=== PATIENT | female | born 1985 | race Asian ===

== ENCOUNTER → 2024-11-09 13:52 | Outpatient (REF) | payer OTHER, SELFPAY | LOC: WDC 13:52 | PROVIDERS: ATTENDING PHYSICIAN Student in an Organized Health Care Education/Training Program; FAMILY PHYSICIAN Family Medicine | DX: Z12.31 Encounter for screening mammogram for malignant neoplasm of breast (principal) | CPT/HCPCS: 77063; 77067 ==

== ENCOUNTER → 2025-07-22 13:58 | Outpatient (REF) | payer OTHER, SELFPAY | LOC: RAD 13:58 | PROVIDERS: ATTENDING PHYSICIAN Obstetrics & Gynecology; FAMILY PHYSICIAN Family Medicine | DX: N70.11 Chronic salpingitis (principal) | CPT/HCPCS: 76830; 76856 ==

== ENCOUNTER 2025-08-02 05:09 | Emergency (ER) | payer OTHER, SELFPAY ==
[2025-08-02 05:10] VITALS: BP 110/52
[2025-08-02 05:32] VITALS: BMI 19.2
[2025-08-02] MEDS: NSS 1000 IV (05:41)
[2025-08-02] MEDS: ZOFRAN 4 MG IV (05:45)
[2025-08-02] MEDS: MORPHINE SULFATE 4 MG IV (05:47)
--- NOTE | 2025-08-02 05:55 | EDRN ---
Pt complains of lower abdominal pain that started last night. Pt says pain was intermittent and stabbing in nature. Pt took 2 advil at 2200 before going to bed. Pain woke pt around 0330. Pt took 1 advil at 0400 and says advil helped her pain a
little. Pt feels bloated. Pt denies cp, sob, n/v/d/c, urinary symptoms, fever/chills/cough, weakness, dizziness. Pt with known ovarian cyst. No bleeding.
[2025-08-02 05:57] LABS: Hematocrit 34.0 % (37.0-47.0); Hemoglobin 11.5 g/dL (12.0-16.0); Mean Corp Hgb Conc. 33.8 g/dL (33.0-37.0); Mean Corpuscular Volume 90.2 fL (81.0-99.0); Nucleated Red Blood Cells % 0 %; Platelet Count 181 10^3/uL (130-400); Red Cell Dist. Width 13.4 % (11.5-14.5)
[2025-08-02 06:07] LABS: HCG, Serum Qualitative Screen Negative
--- NOTE | 2025-08-02 06:14 | ED.GENMED ---
History of Present Illness
<Vitaliy De Jesus, - Last Filed: 08/02/25 06:16>
General
Chief Complaint: Abdominal Pain
Source: patient and spouse
Time Seen by Provider: 08/02/25 05:14
Nursing documentation reviewed up to this point in time: agreed with
History of Present Illness
History of Present Illness:
Note:
CHIEF COMPLAINT(S)
Severe lower abdominal pain.
HISTORY OF PRESENT ILLNESS
The patient is a 39-year-old female who presented with severe lower left abdominal/ pelvic pain. The pain initially occurred at 3:10 PM the previous day, described as excruciating, and lasted approximately 40 minutes. The patient considered seeking
immediate medical attention but the pain subsided before arrival at the emergency department. The pain recurred around 3:30 AM with an intensity rated as 6 to 7 out of 10. The patient reports mild nausea but denies fever, chills, or urinary problems.
The patient has a recent history of being diagnosed with an ovarian cyst in [place] upon physical examination. Subsequent ultrasounds revealed conflicting diagnoses, with one being an ovarian cyst and another suggesting a hydrosalpinx. The patient is
attempting to undergo magnetic resonance imaging (MRI) for a definitive diagnosis. She reports no prior experience of such pain and describes it as sharp, often intensifying with bowel movements, and now encompassing a broader area of the abdomen.
EXTERNAL RECORDS REVIEWED
According to the patients verbal report, a physical examination was conducted in [place] recently, identifying an ovarian cyst through ultrasound. A subsequent evaluation in the [facility] presented a similar finding, alongside an alternative diagnosis of
hydrosalpinx based on various ultrasound types.
SOCIAL DETERMINANTS AFFECTING HEALTH
There is no mention of factors such as substance use, financial hardship, or housing instability affecting the patients health in the conversation.
REVIEW OF SYSTEMS
- Gastrointestinal: Severe lower abdominal pain, mild nausea.
- Urinary: No urinary issues reported.
- Constitutional: No fever, chills reported.
PHYSICAL EXAM
General: Alert, minimal acute distress.
Skin: Warm, dry.
Head: Normocephalic, atraumatic.
Neck: Supple, trachea midline.
Eye Ears, nose, mouth and throat: Oral mucosa moist.
Cardiovascular: Normal peripheral perfusion, No edema.
Respiratory: Respirations are non-labored.
Gastrointestinal: Abdomen nondistended. Good bowel sounds x 4 quadrants. Tenderness to palpation in the left lower quadrant
Back: Normal range of motion, Normal alignment.
Musculoskeletal: Normal ROM, normal strength.
Neurological: Alert and oriented to person, place, time, and situation, No focal neurological deficit observed.
Psychiatric: Cooperative, appropriate mood & affect.
PLAN
Administer intravenous fluids to the patient to aid in imaging studies. An ultrasound is suggested as the first diagnostic test to assess for potential ovarian torsion, given that it may be more effective in identifying this condition than a
computed tomography (CT) scan. A CT scan is also recommended to investigate further and consider hydrosalpinx as a differential. Consent should be obtained for a transvaginal ultrasound if the patient is agreeable.
DIFFERENTIAL DIAGNOSIS
The Differential Diagnosis includes, in no particular order and is not limited to:
1. Ovarian cyst
2. Ovarian torsion
3. Hydrosalpinx
4. Pelvic inflammatory disease
5. Ectopic
6. Appendicitis
7. Urinary tract infection
8. Gastroenteritis
9. Diverticulitis
10. Renal colic
Phy Exam
<Raymundo Hinds, DO - Last Filed: 08/02/25 14:18>
Physical Exam
Physical Exam:
.
Course
<Vitaliy De Jeuss, DO - Last Filed: 08/02/25 06:16>
Orders/Labs/Results
Orders:
Orders
08/02/25 05:15
CT Abd/Pel (IV only)-[facility] only Urgent
Comment:
Reason For Exam: LLQ abd pain
Test Result ONCE
08/02/25 05:30
US Pelvis Transvaginal Only Urgent
Comment:
Reason For Exam: left pelvic pain, previous dx of Ovarian cyst
08/02/25 05:31
0.9% Sodium Chloride 1000 ml [Nss] 1,000 ml IV BOLUS
Morphine Sulfate 4 mg IV NOW STA
Ondansetron Injectable [Zofran] 4 mg IV NOW STA
08/02/25 05:40
Complete Blood Count/With Diff Urgent
Comprehensive Metabolic Panel Urgent
HCG, Serum Qualitative Screen Urgent
Lipase Urgent
PTT Urgent
Prothrombin Time Urgent
08/02/25 07:26
Urinalysis Reflex To Culture Urgent
Date Specimen was Collected: 08/02/25
Time Specimen was Collected: 07:23
Urine Microscopic Reflex Cult Urgent
Urine Culture Urgent
KIKI Source: U
Specimen Description:
Date Specimen was Collected: 08/02/25
Time Specimen was Collected: 07:23
Abnormal Lab Results
08/02/25 08/02/25
05:40 07:26
WBC 13.7 H 10^3/uL
(4.8-10.8)
RBC 3.77 L 10^6/uL
(4.20-5.40)
Hgb 11.5 L g/dL
(12.0-16.0)
Hct 34.0 L %
(37.0-47.0)
Absolute Neuts (auto) 12.1 H 10^3/uL
(1.4-6.5)
Absolute Lymphs (auto) 1.0 L 10^3/uL
(1.2-3.4)
Neutrophils % 88.0 H %
(42.2-75.2)
Lymphocytes % 7.1 L %
(20.5-51.1)
Chloride 108 H mmol/L
(98-107)
Creatinine 0.4 L mg/dL
(0.6-1.0)
Glucose 103 H mg/dl
(70-99)
Total Bilirubin 2.1 H mg/dl
(0.2-1.3)
Alkaline Phosphatase 36 L U/L
(38-126)
Leukocyte Esterase Rfl 1+ A
(Negative)
Urine Bacteria (Reflex) Few A
(Negative)
08/02/25 05:40
08/02/25 05:40
Vital Signs
Initial and Last Documented VS:
Initial Vital Signs
Temp Pulse Resp BP Pulse Ox
97.8 F 80 24 110/52 100
08/02/25 05:10 08/02/25 05:10 08/02/25 05:10 08/02/25 05:10 08/02/25 05:10
Last Documented Vital Signs
Temp Pulse Resp BP Pulse Ox
98.5 F 72 16 106/70 98
08/02/25 05:46 08/02/25 08:05 08/02/25 08:05 08/02/25 08:05 08/02/25 08:05
<Raymundo Hinds, DO - Last Filed: 08/02/25 14:18>
Orders/Labs/Results
Orders:
Orders
08/02/25 05:15
CT Abd/Pel (IV only)-[facility] only Urgent
Comment:
Reason For Exam: LLQ abd pain
Test Result ONCE
08/02/25 05:30
US Pelvis Transvaginal Only Urgent
Comment:
Reason For Exam: left pelvic pain, previous dx of Ovarian cyst
08/02/25 05:31
0.9% Sodium Chloride 1000 ml [Nss] 1,000 ml IV BOLUS
Morphine Sulfate 4 mg IV NOW STA
Ondansetron Injectable [Zofran] 4 mg IV NOW STA
08/02/25 05:40
Complete Blood Count/With Diff Urgent
Comprehensive Metabolic Panel Urgent
HCG, Serum Qualitative Screen Urgent
Lipase Urgent
PTT Urgent
Prothrombin Time Urgent
08/02/25 07:26
Urinalysis Reflex To Culture Urgent
Date Specimen was Collected: 08/02/25
Time Specimen was Collected: 07:23
Urine Microscopic Reflex Cult Urgent
Urine Culture Urgent
KIKI Source: U
Specimen Description:
Date Specimen was Collected: 08/02/25
Time Specimen was Collected: 07:23
Abnormal Lab Results
08/02/25 08/02/25
05:40 07:26
WBC 13.7 H 10^3/uL
(4.8-10.8)
RBC 3.77 L 10^6/uL
(4.20-5.40)
Hgb 11.5 L g/dL
(12.0-16.0)
Hct 34.0 L %
(37.0-47.0)
Absolute Neuts (auto) 12.1 H 10^3/uL
(1.4-6.5)
Absolute Lymphs (auto) 1.0 L 10^3/uL
(1.2-3.4)
Neutrophils % 88.0 H %
(42.2-75.2)
Lymphocytes % 7.1 L %
(20.5-51.1)
Chloride 108 H mmol/L
(98-107)
Creatinine 0.4 L mg/dL
(0.6-1.0)
Glucose 103 H mg/dl
(70-99)
Total Bilirubin 2.1 H mg/dl
(0.2-1.3)
Alkaline Phosphatase 36 L U/L
(38-126)
Leukocyte Esterase Rfl 1+ A
(Negative)
Urine Bacteria (Reflex) Few A
(Negative)
08/02/25 05:40
08/02/25 05:40
Vital Signs
Initial and Last Documented VS:
Initial Vital Signs
Temp Pulse Resp BP Pulse Ox
97.8 F 80 24 110/52 100
08/02/25 05:10 08/02/25 05:10 08/02/25 05:10 08/02/25 05:10 08/02/25 05:10
Last Documented Vital Signs
Temp Pulse Resp BP Pulse Ox
98.5 F 72 16 106/70 98
08/02/25 05:46 08/02/25 08:05 08/02/25 08:05 08/02/25 08:05 08/02/25 08:05
<Vitaliy De Jesus, DO - Last Filed: 08/02/25 06:16>
*Pulse Oximetry
SaO2: 100
Oxygen Mode of Delivery: Room air
Patient hypoxic: no
*Critical Care Note
Total Time (30-74mins, 75-104mins- exclusive of procedures): Not Applicable
<Raymundo Hinds, DO - Last Filed: 08/02/25 14:18>
Update Note
Update Note:
US shows large septated mass left ovarian vs hematosalpinx. D/w Dr Busby, recommends ct a/p. Patient pain-free at this time. No signs of torsion on ultrasound or CT. Discussed with Dr. Vyas who recommends follow-up with patient's [employer] Dr.
Yeh. Return precautions given.
ED Attending Note
<Vitaliy De Jesus, DO - Last Filed: 08/02/25 06:16>
-
Portions of this chart may have been created with voice recognition software.� Occasional wrong word or��sound alike� substitutions may have occurred due to the inherent limitations of voice recognition software.
Discharge Plan
Departure
Patient Disposition: Home (Routine Discharge)
Date of Disposition: 08/02/25
Time of Disposition: 10:10
Patient with high blood pressure during this ER visit?: No
Condition: Good
Discharge Problem:
Cyst of left ovary
Instructions: Ovarian Cyst (DC)
Prescriptions:
No Action
doxycycline hyclate 100 mg Tablet
100 mg PO DAILY
Referrals:
UNKNOWN - PT DOES,NOT KNOW [Family Provider]
Chelsy Acosta MD [Active, Gynecology] - Call in 1-3 days for appt
Interventions
Interventions:
*Risk Screen - Suicide Last Done: 08/02/25 05:10
*General Assessment Last Done: 08/02/25 05:33
*Neglect/Abuse Screening Last Done: 08/02/25 05:10
*ED- Fall Risk Assessment Last Done: 08/02/25 10:27
*ED COVID-19 Vaccine History Last Done: 08/02/25 05:33
*ED Influenza Vaccine History Last Done: 08/02/25 05:33
*Nursing Disposition Last Done: 08/02/25 10:27
KN-Ygqsfo-Ebvaaptxat Assessment Last Done: 08/02/25 05:40
Discharge Date and Time
Discharge Date/Time: 08/02/25 10:28
Print Language: [id number]
[2025-08-02 06:21] VITALS: BP 100/58
[2025-08-02 06:22] LABS: ALT (SGPT) 16 U/L (0-35); AST (SGOT) 18 U/L (14-36); Albumin 4.1 g/dl (3.5-5.0); Alkaline Phosphatase 36 U/L (38-126); Blood Urea Nitrogen 16 mg/dl (7-17); Calcium 9.1 mg/dl (8.4-10.2); Carbon Dioxide 22 mmol/L (22-30); Chloride 108 mmol/L (98-107); Estimated Creatinine Clearance 106 ml/min; Glucose 103 mg/dl (70-99); Lipase 63 U/L (23-300); Potassium 3.6 mmol/L (3.5-5.1); Sodium 138 mmol/L (135-145); Total Protein 6.9 g/dl (6.3-8.2); eGFR > 60.00
[2025-08-02 06:29] LABS: INR 1.04; PT 13.9 Sec (11.4-14.6)
[2025-08-02 06:30] LABS: APTT 29.0 Sec (23.4-35.0)
[2025-08-02 07:43] LABS: Urine Character Slightly Cloudy (Clear)
[2025-08-02 08:05] VITALS: BP 106/70
[2025-08-02 08:06] LABS: Urine Red Blood Cell 0-2 /HPF (0-2); Urine Squamous Cell 0-2 /LPF (Few); Urine White Cell 0-2 /HPF (0-5)
== END 2025-08-02 10:28 | disposition home or self-care (01) ==
LOC: EMR 05:09
PROVIDERS: EMERGENCY PHYSICIAN Student in an Organized Health Care Education/Training Program
DX: N83.202 Unspecified ovarian cyst, left side (principal)
CPT/HCPCS: 99284; 96374; 96375; 96361; 74177; 76830; 80053; 81003; 81015; 83690; 84703; 85025; 85610; 85730; 87086; Q9967